=== PATIENT | female | born 1985 | race Caucasian/White ===

== ENCOUNTER 2021-06-10 18:22 | Outpatient (CLI) | payer OTHER ==
[2021-06-10 18:59] LABS: BASOPHILS % (AUTO) 0 % (0-1); EOSINOPHILS % (AUTO) 1 % (1-7); LYMPHOCYTES % (AUTO) 17 % (22-44); MEAN CORPUSCULAR HEMOGLOBIN 27.5 pg (27.0-34.8); MEAN PLATELET VOLUME 9.8 fL (7.4-10.4); MONOCYTES % (AUTO) 8 % (2-9); NEUTROPHILS % (AUTO) 74 % (42-75); PLATELET COUNT 232 x10^3/uL (130-400); RED BLOOD COUNT 3.62 x10^6/uL (3.82-5.3); RED CELL DISTRIBUTION WIDTH 14.8 % (9.6-15.2)
[2021-06-10 19:05] LABS: MICROSCOPIC INDICATED
[2021-06-10 19:07] LABS: ALBUMIN 2.2 g/dL (3.4-5.0); ANION GAP 6 mmol/L (5-15); CALCIUM 8.5 mg/dL (8.5-10.1); CHLORIDE 106 mmol/L (98-107)
[2021-06-10 19:09] LABS: CREATININE,URINE RANDOM 18.6 mg/dL
[2021-06-10 19:11] LABS: ALANINE AMINOTRANSFERASE 27 U/L (12-78); ALKALINE PHOSPHATASE 122 U/L (45-117); BILIRUBIN, DIRECT 0.1 mg/dL (0.1-0.2); BILIRUBIN,TOTAL 0.4 mg/dL (0.2-1.0); CREATININE 0.48 mg/dL (0.55-1.02); TOTAL PROTEIN 6.2 g/dL (6.4-8.2)
== END 2021-06-10 20:05 | disposition home or self-care (01) ==
LOC: LDOP 18:22
PROVIDERS: ATTEND Obstetrics & Gynecology Maternal & Fetal Medicine
DX: O09.93 Supervision of high risk pregnancy, unspecified, third trimester (principal); O36.8130 Decreased fetal movements, third trimester, not applicable or unspecified; O16.3 Unspecified maternal hypertension, third trimester; Z3A.39 39 weeks gestation of pregnancy
CPT/HCPCS: 36415; 59025; 80053; 81001; 82248; 82570; 84156; 84550; 85025

== ENCOUNTER 2021-06-13 05:34 | Inpatient (IN) | payer OTHER ==
[~2021-06-13] VITALS: Ht 162.6 cm; Wt 92.2 kg
[2021-06-13] MEDS ORDERED: NEWBORN KIT ONE (06:25)
[2021-06-13] MEDS ORDERED: OXYTOCIN 30U/ 0.9% NaCL 500ML 500 ML IV PRN (06:30)
[2021-06-13] MEDS ORDERED: TERBUTALINE 1 MG/ML, 1ML SQ PRN (06:30)
[2021-06-13] MEDS ORDERED: LACTATED RINGERS 1,000 ML IV SCH (06:30)
[2021-06-13] MEDS ORDERED: OXYTOCIN 30U/ 0.9% NaCL 500ML 500 ML IV ONE (06:30)
[2021-06-13] MEDS ORDERED: TERBUTALINE 1 MG/ML, 1ML IVPush PRN (06:30)
[2021-06-13] MEDS ORDERED: FENTANYL PF 100 MCG/2ML IVPush PRN (06:30)
[2021-06-13] MEDS ORDERED: FENTANYL PF 100 MCG/2ML IV PRN (06:30)
[2021-06-13] MEDS ORDERED: ONDANSETRON 2MG/ML, 2ML IVPush PRN (06:30)
[2021-06-13 06:57] LABS: BASOPHILS % (AUTO) 1 % (0-1); EOSINOPHILS % (AUTO) 2 % (1-7); LYMPHOCYTES % (AUTO) 20 % (22-44); MEAN CORPUSCULAR HEMOGLOBIN 28.3 pg (27.0-34.8); MEAN CORPUSCULAR HGB CONC 33.8 g/dL (32.4-35.8); MEAN PLATELET VOLUME 10.9 fL (7.4-10.4); MONOCYTES % (AUTO) 7 % (2-9); NEUTROPHILS % (AUTO) 70 % (42-75); PLATELET COUNT 209 x10^3/uL (130-400); RED BLOOD COUNT 3.39 x10^6/uL (3.82-5.3); RED CELL DISTRIBUTION WIDTH 14.8 % (9.6-15.2)
[2021-06-13 07:06] LABS: ALANINE AMINOTRANSFERASE 23 U/L (12-78); ALBUMIN 2.1 g/dL (3.4-5.0); ANION GAP 8 mmol/L (5-15); CHLORIDE 109 mmol/L (98-107); CREATININE 0.59 mg/dL (0.55-1.02)
[2021-06-13 07:08] LABS: ALKALINE PHOSPHATASE 114 U/L (45-117); BILIRUBIN,TOTAL 0.3 mg/dL (0.2-1.0); TOTAL PROTEIN 5.8 g/dL (6.4-8.2)
[2021-06-13] MEDS ORDERED: PLEASE ENTER HEIGHT AND WEIGHT MC SCH ×2 (07:30→08:30)
[2021-06-13] MEDS: LIOTHYRONINE 5 MCG TABLET HOMEMEDPO SCH (09:00)
[2021-06-13 09:02] LABS: CREATININE,URINE RANDOM 43.7 mg/dL
[2021-06-13 09:04] LABS: MICROSCOPIC INDICATED
[2021-06-13] MEDS ORDERED: MISOPROSTOL 200 MCG TABLET ONE (09:05)
[2021-06-13] MEDS ORDERED: OXYTOCIN 30U/ 0.9% NaCL 500ML 500 ML ONE (09:05)
[2021-06-14] MEDS: LEVOTHYROXINE 88 MCG TABLET HOMEMEDPO SCH (06:00)
[2021-06-14] MEDS ORDERED: FENTANYL/BUPIV./NS/PF 250 ML EPIDCONT ONE (06:21)
[2021-06-14] MEDS ORDERED: ACETAMINOPHEN 500 MG TABLET ONE (08:05)
[2021-06-14] MEDS ORDERED: DIPHENHYDRAMINE 50 MG/ML, 1ML ONE (08:05)
[2021-06-14] MEDS: AMPICILLIN 2 GM in SODIUM CHLORIDE 0.9% 100 ML IV SCH ×2 (08:08→18:23)
[2021-06-14] MEDS ORDERED: GENTAMICIN PER PHARMACY MC PRN (08:30)
[2021-06-14] MEDS ORDERED: ACETAMINOPHEN 500 MG TABLET PO ONE (08:30)
[2021-06-14] MEDS ORDERED: DIPHENHYDRAMINE 50 MG/ML, 1ML IVPush ONE (08:30)
[2021-06-14] MEDS ORDERED: ACETAMINOPHEN 100 ML IVPB ONE (08:40)
[2021-06-14] MEDS: GENTAMICIN 80 MG in SODIUM CHLORIDE 0.9% 50 ML IV SCH ×2 (10:15→19:52)
[2021-06-14] MEDS ORDERED: METOCLOPRAMIDE 5 MG/ML, 2ML ONE ×2 (10:50→10:54)
[2021-06-14] MEDS ORDERED: SODIUM CITRATE/CITRIC ACID 15 ML UDC ONE ×2 (10:50→10:54)
[2021-06-14] MEDS ORDERED: HYDROmorphone 2 MG/ML, 1ML IVPush PRN (11:00)
[2021-06-14] MEDS ORDERED: ONDANSETRON 2MG/ML, 2ML IVPush PRN (11:00)
[2021-06-14] MEDS ORDERED: ALBUTEROL SULFATE 2.5 MG/3 ML NPPB PRN (11:00)
[2021-06-14] MEDS ORDERED: hydrALAzine 20 MG/ML, 1ML IV PRN (11:00)
[2021-06-14] MEDS ORDERED: EPHEDRINE 50 MG/ML, 1ML IVPush PRN (11:00)
[2021-06-14] MEDS ORDERED: SODIUM CITRATE/CITRIC ACID 30 ML UDC PO ONE (11:00)
[2021-06-14] MEDS ORDERED: LABETALOL 5MG/ML, 20ML IV PRN (11:00)
[2021-06-14] MEDS ORDERED: HYDROcodone/APAP 7.5-325MG/15ML UDC PO PRN (11:00)
[2021-06-14] MEDS ORDERED: FENTANYL PF 100 MCG/2ML IV PRN (11:00)
[2021-06-14] MEDS ORDERED: METOCLOPRAMIDE 5 MG/ML, 2ML IV ONE (11:00)
[2021-06-14] MEDS ORDERED: LACTATED RINGERS 1,000 ML IVBOLUS ONE (11:00)
[2021-06-14] MEDS ORDERED: AZITHROMYCIN 500 MG in SODIUM CHLORIDE 0.9% 250 ML IV ONE (11:00)
[2021-06-14] MEDS ORDERED: METOPROLOL 1 MG/ML, 5ML IV PRN (11:00)
[2021-06-14] MEDS ORDERED: CEFAZOLIN PMX 1GM/50ML 50 ML IVPB ONE (11:00)
[2021-06-14] MEDS ORDERED: CLINDAMYCIN PMX 900MG/50ML 50 ML IV ONE (11:00)
[2021-06-14] MEDS ORDERED: MEPERIDINE/PF 25MG/0.5ML IVPush PRN (11:00)
[2021-06-14] MEDS ORDERED: OXYcodone 5 MG/5 ML ORAL.SOL UDC PO PRN (11:00)
[2021-06-14] MEDS ORDERED: PROMETHAZINE 25 MG/ML, 1ML IV PRN (11:00)
[2021-06-14] MEDS ORDERED: MIDAZOLAM 1 MG/ML, 2ML IV PRN (11:00)
[2021-06-14] MEDS ORDERED: METHYLERGONOVINE 0.2 MG/ML IM PRN (13:00)
[2021-06-14] MEDS ORDERED: METOCLOPRAMIDE 5 MG/ML, 2ML IV PRN (13:00)
[2021-06-14] MEDS ORDERED: ONDANSETRON 2MG/ML, 2ML IV PRN (13:00)
[2021-06-14] MEDS ORDERED: MISOPROSTOL 200 MCG TABLET PO PRN (13:00)
[2021-06-14] MEDS ORDERED: MORPHINE SULFATE 4 MG/ML, 1ML IVPush PRN (13:00)
[2021-06-14] MEDS ORDERED: TRANEXAMIC ACID 1,000 MG in SODIUM CHLORIDE 0.9% 100 ML IVPB ONE (13:00)
[2021-06-14 15:15] VITALS: BP 116/79
[2021-06-14] MEDS: KETOROLAC 30 MG/1 ML IV SCH (18:21)
[2021-06-14 18:48] LABS: MEAN CORPUSCULAR HEMOGLOBIN 27.3 pg (27.0-34.8); MEAN CORPUSCULAR HGB CONC 32.6 g/dL (32.4-35.8); MEAN PLATELET VOLUME 9.9 fL (7.4-10.4); PLATELET COUNT 156 x10^3/uL (130-400); RED CELL DISTRIBUTION WIDTH 15.1 % (9.6-15.2)
[2021-06-14 18:59] LABS: ALANINE AMINOTRANSFERASE 22 U/L (12-78); ALBUMIN 1.6 g/dL (3.4-5.0); ANION GAP 7 mmol/L (5-15); CALCIUM 7.6 mg/dL (8.5-10.1); CHLORIDE 106 mmol/L (98-107); CREATININE 0.66 mg/dL (0.55-1.02)
[2021-06-14 19:01] LABS: ALKALINE PHOSPHATASE 84 U/L (45-117); BILIRUBIN,TOTAL 0.7 mg/dL (0.2-1.0); TOTAL PROTEIN 4.9 g/dL (6.4-8.2)
[2021-06-14 19:22] LABS: BAND#(MANUAL) 9.03 x10^3/uL; BANDS%(MANUAL) 37 % (0-7); SEG#(MANUAL) 15.37 x10^3/uL (1.8-6.8); SEGS% (MANUAL) 63 % (42-75)
[2021-06-14 19:23] LABS: <PLATELET ESTIMATE> ADEQUATE; <PLT MORPHOLOGY> NORMAL PLT MORPH; <RBC MORPHOLOGY> NORMAL
[2021-06-14 20:00] VITALS: BP 120/80
[2021-06-14] MEDS: LIOTHYRONINE 5 MCG TABLET HOMEMEDPO SCH (20:29)
[2021-06-14] MEDS: LACTATED RINGERS 1,000 ML IV SCH ×4 (20:30→23:00)
[2021-06-14] MEDS: OXYTOCIN 30U/ 0.9% NaCL 500ML 500 ML IV SCH ×2 (20:30→23:00)
[2021-06-14] MEDS: CLINDAMYCIN PMX 900MG/50ML 50 ML IV SCH (20:38)
[2021-06-14] MEDS ORDERED: CLINDAMYCIN 150 MG/ML, 6ML IV SCH (21:00)
[2021-06-15] MEDS: KETOROLAC 30 MG/1 ML IV SCH ×4 (00:33→18:31)
[2021-06-15] MEDS: AMPICILLIN 2 GM in SODIUM CHLORIDE 0.9% 100 ML IV SCH ×4 (00:34→18:31)
[2021-06-15 00:44] VITALS: BP 112/75
[2021-06-15] MEDS: GENTAMICIN 80 MG in SODIUM CHLORIDE 0.9% 50 ML IV SCH ×3 (03:49→19:29)
[2021-06-15] MEDS: CLINDAMYCIN PMX 900MG/50ML 50 ML IV SCH ×3 (04:29→21:11)
[2021-06-15] MEDS: OXYcodone/APAP 5/325MG TABLET PO PRN ×4 (04:30→22:29)
[2021-06-15 04:33] VITALS: BP 110/76
[2021-06-15] MEDS: LACTATED RINGERS 1,000 ML IV SCH ×5 (05:00→21:00)
[2021-06-15 06:05] LABS: CHLORIDE 106 mmol/L (98-107)
[2021-06-15 06:08] LABS: MEAN CORPUSCULAR HEMOGLOBIN 27.8 pg (27.0-34.8); MEAN CORPUSCULAR HGB CONC 33.2 g/dL (32.4-35.8); MEAN PLATELET VOLUME 9.9 fL (7.4-10.4); PLATELET COUNT 153 x10^3/uL (130-400); RED CELL DISTRIBUTION WIDTH 14.9 % (9.6-15.2)
[2021-06-15 06:11] LABS: ALANINE AMINOTRANSFERASE 20 U/L (12-78); ALBUMIN 1.4 g/dL (3.4-5.0); ALKALINE PHOSPHATASE 70 U/L (45-117); ANION GAP 5 mmol/L (5-15); BILIRUBIN,TOTAL 0.6 mg/dL (0.2-1.0); CALCIUM 7.7 mg/dL (8.5-10.1); CREATININE 0.51 mg/dL (0.55-1.02); TOTAL PROTEIN 4.5 g/dL (6.4-8.2)
[2021-06-15] MEDS: LEVOTHYROXINE 88 MCG TABLET HOMEMEDPO SCH (06:30)
[2021-06-15] MEDS: LIOTHYRONINE 5 MCG TABLET HOMEMEDPO SCH (06:30)
[2021-06-15 06:55] VITALS: BP 119/75
[2021-06-15 07:13] LABS: <PLATELET ESTIMATE> ADEQUATE; <PLT MORPHOLOGY> NORMAL PLT MORPH; <RBC MORPHOLOGY> NORMAL; BAND#(MANUAL) 7.42 x10^3/uL; BANDS%(MANUAL) 35 % (0-7); LYMPH#(MANUAL) 0.64 x10^3/uL (1-3.4); LYMPHS% (MANUAL) 3 % (22-44); MONOS#(MANUAL) 0.64 x10^3/uL (0.3-2.7); MONOS% (MANUAL) 3 % (2-9); SEG#(MANUAL) 12.51 x10^3/uL (1.8-6.8); SEGS% (MANUAL) 59 % (42-75)
[2021-06-15] MEDS: PRENATAL VIT/IRON/FA 1 EACH TABLET PO SCH (07:51)
[2021-06-15] MEDS: DOCUSATE 100 MG CAPSULE PO PRN ×2 (07:51→19:29)
[2021-06-15] MEDS: OXYTOCIN 30U/ 0.9% NaCL 500ML 500 ML IV SCH ×2 (09:00→19:00)
[2021-06-15 12:15] VITALS: BP 128/83
[2021-06-15] MEDS: SIMETHICONE 80 MG CHEW TAB PO PRN ×2 (15:44→22:32)
[2021-06-15 16:25] VITALS: BP 130/84
[2021-06-15 19:15] VITALS: BP 106/71
[2021-06-16] MEDS: AMPICILLIN 2 GM in SODIUM CHLORIDE 0.9% 100 ML IV SCH (00:15)
[2021-06-16] MEDS: KETOROLAC 30 MG/1 ML IV SCH ×2 (00:15→06:25)
[2021-06-16 00:26] VITALS: BP 115/72
[2021-06-16] MEDS: LACTATED RINGERS 1,000 ML IV SCH ×4 (00:28→21:00)
[2021-06-16] MEDS: OXYTOCIN 30U/ 0.9% NaCL 500ML 500 ML IV SCH ×2 (00:28→19:00)
[2021-06-16] MEDS: GENTAMICIN 80 MG in SODIUM CHLORIDE 0.9% 50 ML IV SCH ×2 (03:13→11:15)
[2021-06-16] MEDS: OXYcodone/APAP 5/325MG TABLET PO PRN ×3 (03:21→15:34)
[2021-06-16 04:45] VITALS: BP 106/71
[2021-06-16] MEDS: CLINDAMYCIN PMX 900MG/50ML 50 ML IV SCH (04:45)
[2021-06-16] MEDS: LEVOTHYROXINE 88 MCG TABLET HOMEMEDPO SCH (06:00)
[2021-06-16] MEDS ORDERED: GENTAMICIN PER PHARMACY MC PRN (06:30)
[2021-06-16] MEDS: LIOTHYRONINE 5 MCG TABLET HOMEMEDPO SCH (06:39)
[2021-06-16 08:00] VITALS: BP 135/84
[2021-06-16] MEDS ORDERED: AMPICILLIN 2 GM in SODIUM CHLORIDE 0.9% 100 ML IV SCH (08:30)
[2021-06-16] MEDS ORDERED: CLINDAMYCIN PMX 900MG/50ML 50 ML IV SCH (11:30)
[2021-06-16] MEDS: DOCUSATE 100 MG CAPSULE PO PRN ×2 (12:09→22:22)
[2021-06-16] MEDS: PRENATAL VIT/IRON/FA 1 EACH TABLET PO SCH (12:09)
[2021-06-16] MEDS: IBUPROFEN 600 MG TABLET PO PRN ×2 (12:09→18:15)
[2021-06-16 12:19] VITALS: BP 124/79
[2021-06-16 20:55] VITALS: BP 131/83
[2021-06-16] MEDS: ACETAMINOPHEN 325 MG TABLET PO PRN (22:22)
[2021-06-17] VITALS (8 sets, daily range): BP systolic 125–162; BP diastolic 75–96
[2021-06-17] MEDS: IBUPROFEN 600 MG TABLET PO PRN ×4 (00:37→18:15)
[2021-06-17] MEDS: LACTATED RINGERS 1,000 ML IV SCH ×6 (01:00→21:00)
[2021-06-17] MEDS: OXYTOCIN 30U/ 0.9% NaCL 500ML 500 ML IV SCH ×3 (01:00→21:00)
[2021-06-17] MEDS: LEVOTHYROXINE 88 MCG TABLET HOMEMEDPO SCH (06:00)
[2021-06-17] MEDS: ACETAMINOPHEN 325 MG TABLET PO PRN ×4 (06:06→21:00)
[2021-06-17] MEDS: LIOTHYRONINE 5 MCG TABLET HOMEMEDPO SCH (06:09)
[2021-06-17] MEDS: DOCUSATE 100 MG CAPSULE PO PRN ×2 (10:47→21:00)
[2021-06-17] MEDS: PRENATAL VIT/IRON/FA 1 EACH TABLET PO SCH (10:47)
[2021-06-17] MEDS: MAGNESIUM HYDROXIDE 8%, 30ML UDC PO SCH (10:49)
[2021-06-17] MEDS: LABETALOL 100 MG TABLET PO SCH ×2 (11:00→18:00)
[2021-06-17] MEDS: OXYcodone IR 5MG TABLET PO PRN ×3 (13:05→23:20)
[2021-06-18] MEDS: IBUPROFEN 600 MG TABLET PO PRN ×4 (00:01→18:12)
[2021-06-18] MEDS: LACTATED RINGERS 1,000 ML IV SCH ×2 (05:00→07:00)
[2021-06-18 05:45] VITALS: BP 128/83
[2021-06-18] MEDS: LEVOTHYROXINE 88 MCG TABLET HOMEMEDPO SCH (06:00)
[2021-06-18] MEDS: ACETAMINOPHEN 325 MG TABLET PO PRN (06:19)
[2021-06-18] MEDS: LIOTHYRONINE 5 MCG TABLET HOMEMEDPO SCH (06:21)
[2021-06-18] MEDS: OXYTOCIN 30U/ 0.9% NaCL 500ML 500 ML IV SCH (07:00)
[2021-06-18 07:50] VITALS: BP 136/90
[2021-06-18] MEDS: LABETALOL 100 MG TABLET PO SCH ×2 (08:00→18:00)
[2021-06-18] MEDS: MAGNESIUM HYDROXIDE 8%, 30ML UDC PO SCH (08:27)
[2021-06-18] MEDS: PRENATAL VIT/IRON/FA 1 EACH TABLET PO SCH (08:27)
[2021-06-18] MEDS: OXYcodone IR 5MG TABLET PO PRN (10:16)
[2021-06-18 11:55] VITALS: BP 124/73
[2021-06-18] MEDS ORDERED: IBUP-1222 PO (12:27)
[2021-06-18] MEDS ORDERED: OXYC1TAB12 PO (12:27)
[2021-06-18] MEDS ORDERED: LABE100T6 PO (12:28)
[2021-06-18] MEDS: OXYcodone/APAP 5/325MG TABLET PO PRN (16:39)
== END 2021-06-18 22:29 | disposition home or self-care (01) | DRG 786 ==
LOC: LDOP 05:34 → LDIP 05:55 → 2NW 06-14 14:52
PROVIDERS: ADMIT Obstetrics & Gynecology Maternal & Fetal Medicine; ATTEND Obstetrics & Gynecology Maternal & Fetal Medicine
PROC: 10D00Z1 Extraction of Products of Conception, Low, Open Approach (ICD-10-PCS; principal; 2021-06-14)
DX: O75.3 Other infection during labor (principal); A41.9 Sepsis, unspecified organism; Z37.0 Single live birth; O76 Abnormality in fetal heart rate and rhythm complicating labor and delivery; O99.284 Endocrine, nutritional and metabolic diseases complicating childbirth; E03.9 Hypothyroidism, unspecified; J45.909 Unspecified asthma, uncomplicated; O99.52 Diseases of the respiratory system complicating childbirth; O42.92 Full-term premature rupture of membranes, unspecified as to length of time between rupture and onset of labor; O77.0 Labor and delivery complicated by meconium in amniotic fluid; Z20.822 Contact with and (suspected) exposure to COVID-19; Z3A.39 39 weeks gestation of pregnancy; Z80.0 Family history of malignant neoplasm of digestive organs; Z80.8 Family history of malignant neoplasm of other organs or systems; Z82.49 Family history of ischemic heart disease and other diseases of the circulatory system; Z90.49 Acquired absence of other specified parts of digestive tract
CPT/HCPCS: 36415; 36600; 80053; 80170; 81001; 82570; 82803; 83605; 84156; 84550; 85014; 85018; 85025; 86592; 86850; 86900; 87040; 87070; 87075; 87077; 87205; 87635; 88307; G0378; J0131; J0290; J1885; J2405; J1200; J1580; J2210; J2765; J3010; J7120